=== PATIENT | male | born 1985 | race Caucasian/White ===

== ENCOUNTER → 2020-11-19 13:44 | Outpatient (CLI) | payer OTHER, MEDICAID, SELFPAY | PROVIDERS: PCP Physician Assistant; Referring Provider Physician Assistant; Visit Provider Physician Assistant | DX: A60.00 Herpesviral infection of urogenital system, unspecified (principal) | CPT/HCPCS: 36415; 86695; 86696 ==

== ENCOUNTER 2022-04-14 21:02 | Emergency (ER) | payer OTHER, MEDICAID, SELFPAY ==
[2022-04-14] VITALS (8 sets, daily range): BP systolic 117–139; BP diastolic 68–87; PULSE 79–105; RESP 6–24; TEMP 36.1; O2SAT 97–99; BMI 28.2
--- NOTE | 2022-04-14 21:41 | PC.NURSE ---
pt states that yesterday he felt like his whole body was spasming. he felt like someone was gripping his chest and he couldnt breath, his hands kept cramping up and he was unable to let go of the knife he was using to cut up chicken for dinner, he couldnt let go of plate. then today his legs felt like they were cramping up and he could not bear weight. pt describes the feeling like he needed to stretch out. pt states he has been remodeling his bathroom and had a few alejandro nails poke him, he is unsure if his tetanus vaccine is up to date.
--- NOTE | 2022-04-14 22:08 | ED_ITS ---
HPI - Extremity Problem General Chief complaint: Extremity Problem,Nontraumatic Stated complaint: muscle spasms bilat legs Time Seen by Provider: 04/14/22 22:07 Source: patient Mode of arrival: Ambulatory History of Present Illness HPI Narrative: Patient is a 36-year-old healthy male who presents with all body muscle spasms. 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 He said yesterday he came a he had hand spasms he was unable to let go of things he had to pry his hands off of knives. He felt like his abdomen was spasming. He was able to lay still take some Tylenol ibuprofen he went to work today. However his leg and thigh of his left side have been in spasm all day. He denies fever or chills. He says he felt like he was having a seizure but he was awake. He denies any chest pain or shortness of breath. Related Data Previous Rx's Medication Instructions Recorded diazepam 5 mg tablet (Valium) 5 mg PO BID PRN muscle spasm #10 04/15/22 tabs Allergies Allergy/AdvReac Type Severity Reaction Status Date / Time No Known Drug Allergies Allergy Verified 04/14/22 21:11 Review of Systems Review of Systems Narrative: GENERAL: Denies chills, fatigue, malaise, fever, sweats, travel HEENT: Denies sinus pain, ear pain, sore throat, difficulty swallowing, neck pain RESPIRATORY: Denies dyspnea, cough, wheezing, hemoptysis, sputum. CARDIOVASCULAR: Denies chest pain, palpitations, orthopnea, edema GASTROINTESTINAL: Denies nausea, vomiting, abdominal pain, diarrhea, constipation, melena. : Denies dysuria, frequency, incontinence, hematuria, urinary retention, flank pain. MUSCULOSKELETAL: See HPI SKIN: No rash, no erythema, no pruritus NEUROLOGIC: Denies weakness, dizziness, headache, numbness, change in speech, confusion PSYCHIATRIC: No concerning psychosocial issues. 12 point review of systems is negative except for those stated above and HPI Patient History Social History Smoking Status: Unknown if ever smoked Smoking Status: Unknown if ever smoked alcohol intake frequency: holidays/special occasions only Substance Use Type: does not use Exam Initial Vital Signs Initial Vital Signs: Vital Signs Temperature 97.0 F L 04/14/22 21:11 Pulse Rate 105 H 04/14/22 21:11 Respiratory Rate 6 L 04/14/22 21:11 Blood Pressure 139/87 04/14/22 21:11 Pulse Oximetry 97 04/14/22 21:11 Oxygen Delivery Method 04/14/22 21:11 GENERAL: Alert 36-year-old male appears mildly uncomfortable HEENT: Head atraumatic,EOMI, pupils reactive, face symmetric, moist mucous membranes CARDIOVASCULAR: Regular rate and rhythm without murmurs, rubs or gallops. RESPIRATORY: Breath sounds equal bilaterally, no wheezes rales or rhonchi. ABDOMEN: Soft, nontender. Normoactive bowel sounds all 4 quadrants. No guarding or rebound. EXTREMITIES: Normal range of motion, no clubbing or edema. Neurovascularly intact Left leg anterior thigh is tender but soft. Calf is soft. Distal pedal pulse intact [employer] strength equal bilaterally on for not fallen or pain NEUROLOGICAL: Alert and oriented x4.N SKIN: Warm, dry, no laceration, no petechiae, no rashes or lesions. Course Orders Ordered: ED Orders 04/14/22 22:24 CBC Auto Diff [Complete Blood Count AUTO DIFF] Stat CMP [Comprehensive Metabolic Panel] Stat CPK [Creatine Kinase] Stat Discontinued Medications Hydrocodone Bitart/Acetaminophen (Hydrocodone/Acet 5/325 Prepack) 1 bottle MISC SEEINSTR ONE Stop: 04/15/22 01:46 Last Admin: 04/15/22 01:51 Dose: 1 bottle Documented By: DAVID Diazepam (Diazepam 5 Mg Tablet) 5 mg PO NOW ONE Stop: 04/14/22 22:17 Last Admin: 04/14/22 22:30 Dose: 5 mg Documented By: ZUNILDA Hydromorphone HCl (Hydromorphone 0.5 Mg Inj) 0.5 mg IV NOW ONE Stop: 04/14/22 23:32 Last Admin: 04/14/22 23:50 Dose: 0.5 mg Documented By: DAVID Sodium Chloride (Normal Saline 0.9%) 1,000 mls @ 1,000 mls/hr IV BOLUS ONE Stop: 04/15/22 00:05 Last Infusion: 04/15/22 00:12 Dose: 0 mls/hr Documented By: Admin: 04/14/22 23:27 Dose: 1,000 mls/hr Documented By: NR Sodium Chloride (Normal Saline 0.9%) 1,000 mls @ 1,000 mls/hr IV BOLUS ONE Stop: 04/15/22 00:06 Last Infusion: 04/15/22 01:05 Dose: 0 mls/hr Documented By: Admin: 04/14/22 23:54 Dose: 1,000 mls/hr Documented By: DAVID Ketorolac Tromethamine (Ketorolac 30 Mg/Ml Vial) 15 mg IV NOW ONE Stop: 04/14/22 22:17 Last Admin: 04/14/22 22:31 Dose: 15 mg Documented By: ZUNILDA Vital Signs Vital signs: Vital Signs - 8 hr 04/14/22 21:39 04/14/22 21:39 04/14/22 22:00 Pulse Rate 91 H 87 Respiratory Rate 15 24 Blood Pressure 126/74 Pulse Oximetry 97 97 04/14/22 22:30 04/14/22 22:35 04/14/22 22:35 Pulse Rate 88 79 Respiratory Rate 23 18 Blood Pressure 123/71 Pulse Oximetry 97 98 04/14/22 23:00 04/14/22 23:29 04/14/22 23:29 Pulse Rate 85 82 Respiratory Rate 21 19 Blood Pressure 117/70 Pulse Oximetry 97 99 04/14/22 23:30 04/14/22 23:30 04/15/22 00:00 Pulse Rate 83 Respiratory Rate 23 Blood Pressure 121/68 113/60 Pulse Oximetry 99 04/15/22 00:00 04/15/22 00:30 04/15/22 00:30 Pulse Rate 79 81 Respiratory Rate 18 21 Blood Pressure 127/78 Pulse Oximetry 97 99 04/15/22 01:00 04/15/22 01:00 04/15/22 01:30 Pulse Rate 74 Respiratory Rate 17 Blood Pressure 118/66 124/82 Pulse Oximetry 100 04/15/22 01:30 Pulse Rate 78 Respiratory Rate 20 Blood Pressure Pulse Oximetry 98 MDM - Extremity (Nontraumatic) Lab Data Result diagrams: 04/14/22 22:24 04/14/22 22:24 Labs: Lab Results 04/14/22 04/14/22 Range/Units 22:24 22:24 WBC 7.1 (4.5-11.0) X10^3/uL RBC 4.47 L (4.5-5.9) X10^6/uL Hgb 13.9 (13.5-17.5) g/dL Hct 39.2 L (41-53) % MCV 87.7 (80-100) fL MCH 31.0 (26-34) PG MCHC 35.3 (30-36) % RDW 13.0 (11.6-14.8) % Plt Count 302 (150-400) X10^3/uL Neut % (Auto) 50.0 (50-75) % Lymph % (Auto) 40.7 H (25-40) % [place] % (Auto) 6.3 (3-14) % Eos % (Auto) 2.1 (2-4) % Baso % (Auto) 0.9 (0-2) % Neut # (Auto) 3500 (6908-6549) /uL Lymph # (Auto) 2900 (2634-5730) /uL [place] # (Auto) 400 (0-900) /uL Eos # (Auto) 200 (0-450) /uL Baso # (Auto) 100 (0-100) /uL Sodium 141 (137-145) mmol/L Potassium 4.0 (3.4-5.1) mmol/L Chloride 107 (98-107) mmol/L Carbon Dioxide 26 (22-32) mmol/L BUN 30 H (9-20) mg/dL Creatinine 1.02 (0.66-1.25) mg/dL Estimated GFR > 60 (>60) mL/min BUN/Creatinine Ratio 29.4 H (6-22) Glucose 109 H (70-100) mg/dL Calcium 8.8 (8.4-10.2) mg/dL Total Bilirubin 0.4 (0.2-1.3) mg/dL AST 56 (17-59) IU/L ALT 49 (<50) IU/L Alkaline Phosphatase 88 (38-126) U/L Total Creatine Kinase 2076 H (55-170) U/L Total Protein 7.5 (6.3-8.2) g/dL Albumin 4.4 (3.5-5.0) g/dL Globulin 3.1 (1.7-4.1) g/dL Albumin/Globulin Ratio 1.4 (1.0-2.8) MDM Narrative Medical decision making narrative: Patient has been having weird spasming like episodes. He has quite a bit of pain in his anterior thigh. His calf is soft his leg is soft. This time no concern for compartment syndrome. He is found to have elevation of CPK of gr eater than 2000. He is given 2 L of IV fluids. In pain medication. Has minimally helped his discomfort. He has the any infectious symptoms. 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 He has done his best to stay adequately hydrated is with fluids. However this may be contributing to his symptoms. He does not have been decided acute kidney injury who. Has this type does need for admission. Discharge Plan Departure Patient Disposition: Home Clinical Impression: Rhabdomyolysis Instructions: Rhabdomyolysis Activity Restrictions/Additional Instructions: *You have been diagnosed with rhabdomyolysis *What to do: At this time due to have a small amount of muscle breakdown. Continue to stay hydrated with Gatorade or Gatorade like product and water. Continue to eat and drink normally. No strenuous exercise or activity *Continue to take medications as directed [place] 1 tablet every 6 hours if needed for [id number] pain Valium 5 mg every 12 hours only if needed for severe muscle spasm *Follow up with your primary care provider in 2-3 days or call [phone] *Return to ER if you should have increasing pain continued spasm or any new, worsening or concerning symptoms CONTROLLED SUBSTANCE DISCHARGE (Narcotoic/benzodiazepine/Flexeril/Phenergan) 1. You have been prescribed narcotic medications, it does have acetaminophen/Tylenol/paracetamol in it, DO NOT TAKE MORE THAN 4,00mg in 24 hours of Tylenol. TRAMADOL DOES NOT CONTAIN TYLENOL 2. Please understand that we cannot provide further refills of narcotics, benzodiazepines or controlled substances through the ED and her pain management will need to be through your provider. 3. While on these medications you cannot drive or operate heavy machinery. 4. You cannot sign legal documents or perform any duties such as this. 5. As long as you're taking opiate pain medications he should also be taking a stool softener such as Colace, Dulcolax, MiraLAX or prune juice, to help avoid constipation. Prescriptions: New diazepam [Valium] 5 mg tablet 5 mg PO BID PRN (Reason: muscle spasm) Qty: 10 0RF Referrals: Holiday,Carmen, PA-C [Primary Care Provider] - Visit Report Forms: Patient Portal/API
[2022-04-14] MEDS: diazePAM 5 MG TABLET PO (22:30)
[2022-04-14] MEDS: KETOROLAC 30 MG/ML VIAL 15 MG IV (22:31)
[2022-04-14 22:34] LABS: Add Manual Diff / Slide Review NO; Basophils Absolute Auto 100 /uL (0-100); Basophils Percent Auto 0.9 % (0-2); Eosinophils Absolute Auto 200 /uL (0-450); Eosinophils Percent Auto 2.1 % (2-4); Hematocrit 39.2 % (41-53); Hemoglobin 13.9 g/dL (13.5-17.5); Lymphocytes Absolute Auto 2900 /uL (1100-4500); Lymphocytes Percent Auto 40.7 % (25-40); Mean Corpuscular HGB Conc 35.3 % (30-36); Mean Corpuscular Volume 87.7 fL (80-100); Monocytes Absolute Auto 400 /uL (0-900); Monocytes Percent Auto 6.3 % (3-14); Neutrophils Absolute Auto 3500 /uL (1500-7000); Platelet Count 302 X10^3/uL (150-400); Red Blood Cell Count 4.47 X10^6/uL (4.5-5.9); White Blood Cell Count 7.1 X10^3/uL (4.5-11.0)
[2022-04-14 22:50] LABS: Alanine Aminotransferase 49 IU/L (<50); Albumin 4.4 g/dL (3.5-5.0); Albumin Globulin Ratio 1.4 (1.0-2.8); Alkaline Phosphatase 88 U/L (38-126); Aspartate Aminotransferase 56 IU/L (17-59); BUN Creatinine Ratio 29.4 (6-22); Bilirubin Total 0.4 mg/dL (0.2-1.3); Blood Urea Nitrogen 30 mg/dL (9-20); Calcium 8.8 mg/dL (8.4-10.2); Carbon Dioxide 26 mmol/L (22-32); Chloride 107 mmol/L (98-107); Estimated Glomerular Filt Rate > 60 mL/min (>60); Globulin 3.1 g/dL (1.7-4.1); Glucose 109 mg/dL (70-100); Sodium 141 mmol/L (137-145); Total Protein 7.5 g/dL (6.3-8.2)
[2022-04-14 23:07] LABS: Creatine Kinase 2076 U/L (55-170); HEMOLYSIS 63 (0-50)
[2022-04-14] MEDS: SODIUM CHLORIDE 0.9% 1,000 ML 1000 ML IV ×2 (23:27→23:54)
[2022-04-14] MEDS: HYDROMORPHONE 0.5 MG INJ IV (23:50)
[2022-04-15] VITALS: BP 113/60; PULSE 79; RESP 18; O2SAT 97
[2022-04-15 00:30] VITALS: BP 127/78; PULSE 81; RESP 21; O2SAT 99
[2022-04-15 01:00] VITALS: BP 118/66; PULSE 74; RESP 17; O2SAT 100
[2022-04-15 01:30] VITALS: BP 124/82; PULSE 78; RESP 20; O2SAT 98
[2022-04-15] MEDS: HYDROCODONE/ACET 5/325 PREPACK 1 BOTTLE MISC (01:51)
== END 2022-04-15 02:01 | disposition home or self-care (01) ==
PROVIDERS: Emergency Provider Emergency Medicine; PCP Physician Assistant
DX: M62.82 Rhabdomyolysis (principal)
CPT/HCPCS: 36415; 80053; 82550; 85025; 96361; 96374; 96375; 99284; J1170; J1885